=== PATIENT | male | born 1985 | race Caucasian/White ===

== ENCOUNTER 2017-07-02 14:10 | Emergency (ER) | payer SELFPAY ==
--- NOTE | 2017-07-02 14:33 | PDOC ---
Rapid Medical Evaluation Time Seen by Provider: 07/02/17 14:32 Medical Evaluation: 07/02/17 14:32 I have performed a brief in-person evaluation of this patient. The patient presents with a chief complaint of:Malaise w/ dizziness and subjective fever. S/p multiple tooth extractions last week, completed abx. Seen by dentist today and told extraction sites healing well and sent to ER for further eval Pertinent physical exam findings: Fever of 102 w/ HR of 165! I have ordered the following: nothing as no PLANNER/SCHEDULER/tech at triage The patient will proceed to the ED for further evaluation. 07/02/17 14:37 Discharge Disposition - Discharge Dispostion Last Admission D/C Date: 03/21/11 - Referrals - Patient Instructions - Post Discharge Activity
[2017-07-02 14:41] VITALS: BMI 23.7
[2017-07-02] MEDS ORDERED: SODIUM CHLORIDE 0.9% 1000 ML INFUS.BAG IV STA (15:06)
--- NOTE | 2017-07-02 15:08 | PDOC ---
Attending Attestation - HPI HPI: 07/02/17 15:31 The patient is a 31 year old male, with no significant past medical history, who presents to the emergency department with right buccal pain, fever, night sweats, and weakness for approximately 2 days. Patient reports recent wisdom tooth extraction 1 week ago, for which he has been taking Clindamycin, but has since stopped. Patient endorses presyncopal episode yesterday, where he fell due to dizziness. He denies any head trauma, LOC, or changes in vision. Patient endorses diaphoresis, but denies any chest pain, palpitations or shortness of breath. Patient reports calling his oral surgeon today, and was recommended to come to the ER for further evaluation. Patient denies any sinus tenderness, chills, cough, headache, or dizziness. He denies any abdominal pain , nausea, vomiting, diarrhea, or constipation. He denies any dysuria, hematuria , frequency, or urgency. He denies any recent travel or sick contacts. Allergies: Erythromycin base Past Surgical History: Recent wisdom tooth extraction Social History: Non smoker. No ETOH or recreational drug use. Oral Surgeon: Dr. Rob Cortes ([phone]) - Medical Decision Making 07/02/17 15:32 Documentation prepared by Piero Faust, acting as director global medical affairs for Dulce Ramos MD. <Piero Faust - Last Filed: 07/02/17 15:30> - Resident Resident Name: Ernie Jacobs - ED Attending Attestation I have performed the following: I have examined & evaluated the patient, The case was reviewed & discussed with the resident, I agree w/resident's findings & plan, Exceptions are as noted - Physicial Exam PE: GENERAL: Awake, alert, and fully oriented. Appears ill. HEAD: No signs of trauma EYES: PERRLA, EOMI, sclera anicteric, conjunctiva clear ENT: Auricles normal inspection, hearing grossly normal, nares patent, oropharynx clear without exudates. Moist mucosa NECK: Normal ROM, supple, no lymphadenopathy, JVD, or masses LUNGS: Breath sounds equal, clear to auscultation bilaterally. No wheezes, and no crackles HEART: Tachycardic, normal S1 and S2, no murmurs, rubs or gallops ABDOMEN: Soft, nontender, normoactive bowel sounds. No guarding, no rebound. No masses EXTREMITIES: Normal range of motion, no edema. No clubbing or cyanosis. No cords, erythema, or tenderness NEUROLOGICAL: Cranial nerves II through XII grossly intact. Normal speech, normal gait. Motor and sensation intact. SKIN: Cool, normal turgor, no rashes or lesions noted. +Pallor. - Medical Decision Making Pt presents with fever s/p recent wisdom teeth extraction. He appears ill, found to have fever and tachycardia. Sepsis protocol initiated. Found to have extreme leukocytosis, primarily blasts as per lab. D/w Dr. Palacio, will transfer out. <Dulce Ramos - Last Filed: 07/02/17 17:26>
[2017-07-02] MEDS ORDERED: SODIUM CHLORIDE 1,000 ML IV STA ×2 (15:09→15:10)
[2017-07-02] MEDS ORDERED: CLINDAMYCIN 600MG PREMIX IVPB 600 MG/50 ML BAG IVPB ONE ×2 (15:29→15:41)
[2017-07-02] MEDS ORDERED: ACETAMINOPHEN 1000 MG/100 ML VIAL (NON FORMULARY) IVPB ONE (15:35)
[2017-07-02] MEDS ORDERED: ACETAMINOPHEN INJECTION 100 ML IVPB ONE (15:41)
[2017-07-02 15:44] LABS: HEMATOCRIT 15.1 % (35.4-49); MCH 31.6 pg (25.7-33.7); MCHC 32.1 g/dl (32.0-35.9); MEAN CELL VOLUME 98.5 fl (80-96); MEAN PLT VOLUME 7.3 fl (7.5-11.1); RBC 1.54 M/mm3 (4.00-5.60); RDW 23.1 % (11.9-15.9)
[2017-07-02 16:10] LABS: ALBUMIN 2.8 g/dl (3.4-5.0); ANION GAP 10 (8-16); BILIRUBIN,TOTAL 0.4 mg/dL (0.2-1.0); BLOOD UREA NITROGEN 13 mg/dL (7-18); CALCIUM 7.8 mg/dL (8.5-10.1); CHLORIDE 100 mmol/L (98-107); CO2 23 mmol/L (21-32); CREATININE 0.8 mg/dL (0.7-1.3); GLUCOSE,RANDOM 109 mg/dL (74-106); POTASSIUM 3.7 mmol/L (3.5-5.1); SGOT/AST 27 U/L (15-37); SGPT/ALT 14 U/L (12-78); SODIUM 133 mmol/L (136-145); TOT PROT 7.1 g/dl (6.4-8.2)
[2017-07-02 16:13] LABS: ALK PHOS 68 U/L (45-117)
[2017-07-02 16:21] LABS: HEMOGLOBIN 4.9 GM/dL (11.7-16.9); PLATELET COUNT 62 K/MM3 (134-434); WHITE BLOOD COUNT 124.4 K/mm3 (4.0-10.0)
[2017-07-02 16:33] LABS: INR 1.42 (0.82-1.09); PROTHROMBIN TIME (PATIENT) 16.1 SEC (9.98-11.88)
[2017-07-02 16:36] LABS: ACTIVATED PTT 20.2 SECONDS (26.9-34.4)
--- NOTE | 2017-07-02 16:47 | PDOC ---
History of Present Illness - History of Present Illness Initial Comments: 07/02/17 16:40 The patient is a 31 year old male with no significant PMH who presents for evaluation of generalized weakness, fevers, and "fast heart rate." The patient reports that he had a recent wisdom tooth extraction 1 week ago and since then has been having night sweats, fevers, and generalized weakness. He was taking PO clindamycin after his surgery and has finished his course of clindamycin. He presented to his oral surgeon's office today who sent him to the ER for further evaluation given his symptoms. The patient denies any chills, chest pain, SOB, nausea, vomiting, abdominal pain, or changes with urination or bowel movements. <Ernie Jacobs - Last Filed: 07/02/17 18:38> <Dulce Ramos - Last Filed: 07/03/17 10:46> - General Chief Complaint: Toothache Stated Complaint: POST SURGICAL FEVER Time Seen by Provider: 07/02/17 14:32 Past History - Past Medical History COPD: No DVT: No - Immunization History Immunization Up to Date: Yes - Suicide/Smoking/Psychosocial Hx Smoking History: Never smoked Have you smoked in the past 12 months: No Information on smoking cessation initiated: No Hx Alcohol Use: No Drug/Substance Use Hx: No Substance Use Type: None <Ernie Jacobs - Last Filed: 07/02/17 18:38> <Dulce Ramos - Last Filed: 07/03/17 10:46> - Past Medical History Allergies/Adverse Reactions: Allergies Allergy/AdvReac Type Severity Reaction Status Date / Time erythromycin base Allergy Verified 07/02/17 14:36 Review of Systems - Review of Systems Comments:: 07/02/17 16:48 Constitutional: Fevers, night sweats, Fatigue. No chills, HEENT: No Rhinorrhea, nasal congestion, visual changes Cardiovascular: Fast heart rate. No chest pain, syncope, lightheadedness Respiratory: No Cough, SOB, Hemoptysis, Gastrointestinal: No Abdominal pain, Nausea, Vomiting, Constipation, Diarrhea, Melena Genitourinary: No Dysuria, Frequency, Urgency, Hesitancy, Hematuria, Flank pain Musculoskeletal: No Myalgia, arthralgia Skin: Pallor. No rashes, itching, bruising, Neurologic: No Headache, Dizziness, Numbness, Weakness, or Tingling Psychiatric: No Hallucinations. No SI or HI <Ernie Jacobs - Last Filed: 07/02/17 18:38> *Physical Exam - Vital Signs Last Vital Signs Temp Pulse Resp BP Pulse Ox 102.0 F H 165 H 16 116/51 100 07/02/17 14:36 07/02/17 14:36 07/02/17 14:36 07/02/17 14:36 07/02/17 14:36 - Physical Exam Comments: 07/02/17 16:50 General Appearance: Nourished. Diaphoretic appearing HEENT: EOMI, [place]. Mild swelling to the right jawline with some tenderness to palpation. No Pharyngeal Erythema, Tonsillar Exudate, Tonsillar Erythema Neck: No Cervical Lymphadenopathy Respiratory/Chest: Lungs Clear, Normal Breath Sounds. No Crackles, Rales, Rhonchi, Wheezing Cardiovascular: Regular Rhythm, Tachycardic Rate. No Murmur, Gallops, Rubs Gastrointestinal/Abdominal: Normal Bowel Sounds, Soft. No Guarding, Rebound, Tenderness Musculoskeletal: No CVA Tenderness Extremity: 3 sec Capillary Refill Integumentary: Pallor noted on exam. Normal Dry, Warm Neurologic: Fully Oriented, Alert, Normal Mood/Affect, Normal Response, <Ernie Jacobs - Last Filed: 07/02/17 18:38> - Vital Signs Last Vital Signs Temp Pulse Resp BP Pulse Ox 99.7 F H 140 H 18 131/76 100 07/02/17 20:39 07/02/17 20:39 07/02/17 20:39 07/02/17 20:39 07/02/17 20:38 <Dulce Ramos - Last Filed: 07/03/17 10:46> Heart Score/ECG Review #1 ECG reviewed & interpreted by me at: 16:53 (Sinus Tachycardic) General ECG Interpretation: Sinus Rhythm, Normal Intervals, No acute ischemic changes <Ernie Jacobs - Last Filed: 07/02/17 18:38> ED Treatment Course - LABORATORY CBC & Chemistry Diagram: 07/02/17 15:19 07/02/17 15:19 - ADDITIONAL ORDERS Additional order review: Laboratory Results 07/02/17 07/02/17 07/02/17 15:19 15:19 15:19 PT with INR 16.10 H INR 1.42 H PTT (Actin FS) 20.2 L Sodium 133 L Potassium 3.7 Chloride 100 Carbon Dioxide 23 Anion Gap 10 BUN 13 Creatinine 0.8 Creat Clearance w eGFR > 60 Random Glucose 109 H Lactic Acid 0.8 Calcium 7.8 L Total Bilirubin 0.4 AST 27 ALT 14 Alkaline Phosphatase 68 Creatine Kinase 24 L Troponin I < 0.02 Total Protein 7.1 Albumin 2.8 L 07/02/17 15:19 RBC 1.54 L MCV 98.5 H MCHC 32.1 RDW 23.1 H MPV 7.3 L Neutrophils % No Result Required. Lymphocytes % No Result Required. - RADIOLOGY Radiology Studies Ordered: Category Date Time Status CHEST X-RAY PORTABLE* [RAD] Stat Radiology 07/02/17 15:06 Completed - Medications Given in the ED: ED Medications Discontinued Medications Generic Name Dose Route Start Last Admin Trade Name Freq PRN Reason Stop Dose Admin Acetaminophen 1,000 mg 07/02/17 15:35 07/02/17 15:43 Ofirmev Injection - IVPB 07/02/17 15:36 1,000 mg ONCE ONE Administration Sodium Chloride 1,000 mls @ 1,000 mls/hr 07/02/17 15:09 07/02/17 15:39 Normal Saline - IV 07/02/17 16:08 1,000 mls/hr ASDIR STA Administration Ernie Morillo - Last Filed: 07/02/17 18:38> - LABORATORY CBC & Chemistry Diagram: 07/02/17 15:19 07/02/17 15:19 - ADDITIONAL ORDERS Additional order review: 07/02/17 15:19 RBC 1.54 L MCV 98.5 H MCHC 32.1 RDW 23.1 H MPV 7.3 L Neutrophils % No Result Required. Lymphocytes % No Result Required. - Medications Given in the ED: ED Medications Discontinued Medications Generic Name Dose Route Start Last Admin Trade Name Freq PRN Reason Stop Dose Admin Acetaminophen 1,000 mg 07/02/17 15:35 07/02/17 15:43 Ofirmev Injection - IVPB 07/02/17 15:36 1,000 mg ONCE ONE Administration Allopurinol 300 mg 07/02/17 17:30 07/02/17 17:54 Zyloprim - PO 07/02/17 17:31 300 mg ONCE ONE Administration Sodium Chloride 1,000 mls @ 1,000 mls/hr 07/02/17 15:09 07/02/17 15:39 Normal Saline - IV 07/02/17 16:08 1,000 mls/hr ASDIR STA Administration Sodium Chloride 1,000 mls @ 1,000 mls/hr 07/02/17 15:10 07/02/17 16:44 Normal Saline - IV 07/02/17 16:09 1,000 mls/hr ASDIR STA Administration Clindamycin Phosphate 600 mg in 50 mls @ 100 mls/hr 07/02/17 15:29 07/02/17 16:44 Cleocin 600 Mg Premix Ivpb - IVPB 07/02/17 15:58 100 mls/hr ONCE ONE Administration Vancomycin HCl 1,250 mg/ 250 mls @ 250 mls/hr 07/02/17 17:30 07/02/17 18:14 Dextrose IVPB 07/02/17 18:29 250 mls/hr ONCE ONE Administration Protocol Cefepime HCl 2 gm/ Dextrose 100 mls @ 200 mls/hr 07/02/17 17:31 07/02/17 17: 54 IVPB 07/02/17 18:00 200 mls/hr ONCE ONE Administration Protocol Sodium Chloride 1,000 mls @ 125 mls/hr 07/02/17 17:45 07/02/17 18:14 Normal Saline - IV 125 mls/hr ASDIR ANGELIA Administration Sodium Chloride 2,313 ml 07/02/17 15:06 07/02/17 16:52 Normal Saline - 30 ml/kg (2313 ml) 07/02/17 15:07 Not Given IV ONCE STA <Dulce Ramos - Last Filed: 07/03/17 10:46> Medical Decision Making - Medical Decision Making 07/02/17 16:53 The patient is a 31 year old male with no significant PMH who presents for evaluation of generalized weakness, fevers, and "fast heart rate." Differential includes but is not limited to: Sepsis, Abscess, Pneumonia, infections, metabolic derangement. Given the patient's recent surgery, fevers, and tachycardia, we are concerned for sepsis at this time. We will obtain a cbc , cmp, troponin, UA, chest plain film, lactate to further evaluate. We will treat with iv fluids and iv clindamycin and iv tylenol in the meantime. We will continue to monitor and reassess. 07/02/17 16:55 CBC is remarkable for a wbc elevation to 129 with a hgb of 4.3. Received a call from the lab that noted many blastocytes on microscopy. The patient's cbc is concerning for a leukemia with a blast crisis or another malignancy. The patient will require admission for further work up and management. We will consult with hematology for further recommendations. 07/02/17 18:23 We discussed the case with Dr. Palacio with Hematology who is recommending critical transfer at this time. We discussed the case with Dr. Capone at [facility] who has accepted the patient for transfer. We will initiate critical transfer. Per Dr. Palacio's recs, we will give the patient 2 units of PRBC, vanc, cefepime, and alloperanol as well as iv fluids. We will continue to monitor and reassess. <Ernie Jacobs - Last Filed: 07/02/17 18:38> *DC/Admit/Observation/Transfer - Transfer to Acute Care Facility Receiving Facility: [facility] Accepting Physician:: Dr. Capone <Ernie Jacobs - Last Filed: 07/02/17 18:38> <Dulce Ramos - Last Filed: 07/03/17 10:46> Diagnosis at time of Disposition: Tachycardia Sepsis Qualifiers: Sepsis type: sepsis due to unspecified organism Qualified Code(s): A41.9 - Sepsis, unspecified organism Fever Qualifiers: Fever type: unspecified Qualified Code(s): R50.9 - Fever, unspecified - Discharge Dispostion Disposition: TRANSFER ACUTE CARE/OTHER HOSP Condition at time of disposition: Guarded
[2017-07-02 16:54] LABS: URINE APPEARANCE SLCLOUDY; URINE BILIRUBIN NEGATIVE (NEGATIVE); URINE BLOOD NEGATIVE (NEGATIVE); URINE COLOR YELLOW; URINE GLUCOSE (UA) NEGATIVE (NEGATIVE); URINE KETONE 1+ (NEGATIVE); URINE LEUK ESTERASE NEGATIVE (NEGATIVE); URINE NITRITE NEGATIVE (NEGATIVE)
[2017-07-02 17:00] LABS: URINE PROTEIN 1+ (NEGATIVE)
--- NOTE | 2017-07-02 17:27 | PN ---
Physical Exam: SUBJECTIVE: Patient seen and examined OBJECTIVE: Vital Signs Period Temp Pulse Resp BP Sys/Whiteside Pulse Ox Last 24 Hr 102.0 F 141-165 16-18 116-121/51-69 97-100 GENERAL: The patient is awake, alert, and fully oriented, in no acute distress. HEAD: Normal with no signs of trauma. EYES: PERRL, extraocular movements intact, sclera anicteric, conjunctiva clear. No ptosis. ENT: Ears normal, nares patent, oropharynx clear without exudates, moist mucous membranes. NECK: Trachea midline, full range of motion, supple. LUNGS: Breath sounds equal, clear to auscultation bilaterally, no wheezes, no crackles, no accessory muscle use. HEART: Regular rate and rhythm, S1, S2 without murmur, rub or gallop. ABDOMEN: Soft, nontender, nondistended, normoactive bowel sounds, no guarding, no rebound, no hepatosplenomegaly, no masses. EXTREMITIES: 2+ pulses, warm, well-perfused, no edema. NEUROLOGICAL: Cranial nerves II through XII grossly intact. Normal speech, gait not observed. PSYCH: Normal mood, normal affect. SKIN: Warm, dry, normal turgor, no rashes or lesions noted Laboratory Results - last 24 hr 07/02/17 07/02/17 07/02/17 15:19 15:19 15:19 WBC 124.4 H* RBC 1.54 L Hgb 4.9 L* Hct 15.1 L MCV 98.5 H MCH 31.6 MCHC 32.1 RDW 23.1 H Plt Count 62 L MPV 7.3 L Neutrophils % No Result Required. Lymphocytes % No Result Required. PT with INR 16.10 H INR 1.42 H PTT (Actin FS) 20.2 L Sodium 133 L Potassium 3.7 Chloride 100 Carbon Dioxide 23 Anion Gap 10 BUN 13 Creatinine 0.8 Creat Clearance w eGFR > 60 Random Glucose 109 H Lactic Acid Calcium 7.8 L Total Bilirubin 0.4 AST 27 ALT 14 Alkaline Phosphatase 68 Creatine Kinase 24 L Troponin I < 0.02 Total Protein 7.1 Albumin 2.8 L Urine Color Urine Appearance Urine pH Ur Specific [place] Urine Protein Urine Glucose (UA) Urine Ketones Urine Blood Urine Nitrite Urine Bilirubin Urine Urobilinogen Ur Leukocyte Esterase Blood Type Antibody Screen 07/02/17 07/02/17 07/02/17 15:19 15:19 16:20 WBC RBC Hgb Hct MCV MCH MCHC RDW Plt Count MPV Neutrophils % Lymphocytes % PT with INR INR PTT (Actin FS) Sodium Potassium Chloride Carbon Dioxide Anion Gap BUN Creatinine Creat Clearance w eGFR Random Glucose Lactic Acid 0.8 Calcium Total Bilirubin AST ALT Alkaline Phosphatase Creatine Kinase Troponin I Total Protein Albumin Urine Color Yellow Urine Appearance Slcloudy Urine pH 5.0 Ur Specific [place] 1.020 Urine Protein 1+ H Urine Glucose (UA) Negative Urine Ketones 1+ H Urine Blood Negative Urine Nitrite Negative Urine Bilirubin Negative Urine Urobilinogen 2.0 Ur Leukocyte Esterase Negative Blood Type O POSITIVE Antibody Screen Negative CBC, BMP 07/02/17 15:19 07/02/17 15:19 ASSESSMENT/PLAN: # Pancytopenia # Hyponaytremia
[2017-07-02 17:30] LABS: VENOUS PC02 33.8 mmHg (38-52); VENOUS PH 7.48 (7.32-7.42); VENOUS PO2 31.2 mmHg (28-48)
[2017-07-02] MEDS ORDERED: ALLOPURINOL 300 MG TABLET (FP) PO ONE (17:30)
[2017-07-02] MEDS ORDERED: VANCOMYCIN 1,250 MG in DEXTROSE 5%-WATER - 250 ML IVPB ONE (17:30)
[2017-07-02] MEDS ORDERED: CEFEPIME 2 GM in DEXTROSE 5%-WATER - 100 ML IVPB ONE (17:31)
[2017-07-02] MEDS ORDERED: ALLOPURINOL 100 MG TABLET (FP) ONE (17:45)
[2017-07-02] MEDS ORDERED: CEFEPIME 2 GM/100 ML BAG IVPB ONE (17:45)
[2017-07-02] MEDS ORDERED: SODIUM CHLORIDE 1,000 ML IV SCH (17:45)
[2017-07-02 18:16] LABS: URIC ACID 4.5 mg/dL (2.6-7.2)
[2017-07-02 19:38] VITALS: TEMP 99.7
[2017-07-02 20:39] VITALS: BP 131/76; PULSE 140
--- NOTE | 2017-07-02 20:49 | PDOC ---
*Physical Exam - Vital Signs Last Vital Signs Temp Pulse Resp BP Pulse Ox 99.7 F H 140 H 18 131/76 100 07/02/17 20:39 07/02/17 20:39 07/02/17 20:39 07/02/17 20:39 07/02/17 20:38 ED Treatment Course - LABORATORY CBC & Chemistry Diagram: 07/02/17 15:19 07/02/17 15:19 - ADDITIONAL ORDERS Additional order review: Laboratory Results 07/02/17 07/02/17 07/02/17 17:30 17:30 17:30 PT with INR INR PTT (Actin FS) Fibrinogen 351.0 VBG pH POC VBG pCO2 POC VBG pO2 Mixed VBG HCO3 Sodium Potassium Chloride Carbon Dioxide Anion Gap BUN Creatinine Creat Clearance w eGFR Random Glucose Lactic Acid Uric Acid 4.5 Calcium Total Bilirubin AST ALT Alkaline Phosphatase LD Total 840 H Creatine Kinase Troponin I Total Protein Albumin Urine Color Urine Appearance Urine pH Ur Specific [place] Urine Protein Urine Glucose (UA) Urine Ketones Urine Blood Urine Nitrite Urine Bilirubin Urine Urobilinogen Ur Leukocyte Esterase Blood Type O POSITIVE Antibody Screen Cancelled Crossmatch See Detail 07/02/17 07/02/17 07/02/17 17:30 16:20 15:19 PT with INR INR PTT (Actin FS) Fibrinogen VBG pH POC VBG pCO2 POC VBG pO2 Mixed VBG HCO3 Sodium Potassium Chloride Carbon Dioxide Anion Gap BUN Creatinine Creat Clearance w eGFR Random Glucose Lactic Acid 0.5 Uric Acid Calcium Total Bilirubin AST ALT Alkaline Phosphatase LD Total Creatine Kinase Troponin I Total Protein Albumin Urine Color Yellow Urine Appearance Slcloudy Urine pH 5.0 Ur Specific [place] 1.020 Urine Protein 1+ H Urine Glucose (UA) Negative Urine Ketones 1+ H Urine Blood Negative Urine Nitrite Negative Urine Bilirubin Negative Urine Urobilinogen 2.0 Ur Leukocyte Esterase Negative Blood Type O POSITIVE Antibody Screen Negative Crossmatch 07/02/17 07/02/17 07/02/17 15:19 15:19 15:19 PT with INR INR PTT (Actin FS) Fibrinogen VBG pH 7.48 H POC VBG pCO2 33.8 L POC VBG pO2 31.2 Mixed VBG HCO3 24.7 Sodium 133 L Potassium 3.7 Chloride 100 Carbon Dioxide 23 Anion Gap 10 BUN 13 Creatinine 0.8 Creat Clearance w eGFR > 60 Random Glucose 109 H Lactic Acid 0.8 Uric Acid Calcium 7.8 L Total Bilirubin 0.4 AST 27 ALT 14 Alkaline Phosphatase 68 LD Total Creatine Kinase 24 L Troponin I < 0.02 Total Protein 7.1 Albumin 2.8 L Urine Color Urine Appearance Urine pH Ur Specific [place] Urine Protein Urine Glucose (UA) Urine Ketones Urine Blood Urine Nitrite Urine Bilirubin Urine Urobilinogen Ur Leukocyte Esterase Blood Type Antibody Screen Crossmatch 07/02/17 15:19 PT with INR 16.10 H INR 1.42 H PTT (Actin FS) 20.2 L Fibrinogen VBG pH POC VBG pCO2 POC VBG pO2 Mixed VBG HCO3 Sodium Potassium Chloride Carbon Dioxide Anion Gap BUN Creatinine Creat Clearance w eGFR Random Glucose Lactic Acid Uric Acid Calcium Total Bilirubin AST ALT Alkaline Phosphatase LD Total Creatine Kinase Troponin I Total Protein Albumin Urine Color Urine Appearance Urine pH Ur Specific [place] Urine Protein Urine Glucose (UA) Urine Ketones Urine Blood Urine Nitrite Urine Bilirubin Urine Urobilinogen Ur Leukocyte Esterase Blood Type Antibody Screen Crossmatch 07/02/17 15:19 RBC 1.54 L MCV 98.5 H MCHC 32.1 RDW 23.1 H MPV 7.3 L Neutrophils % No Result Required. Lymphocytes % No Result Required. - Medications Given in the ED: ED Medications Discontinued Medications Generic Name Dose Route Start Last Admin Trade Name Freq PRN Reason Stop Dose Admin Acetaminophen 1,000 mg 07/02/17 15:35 07/02/17 15:43 Ofirmev Injection - IVPB 07/02/17 15:36 1,000 mg ONCE ONE Administration Allopurinol 300 mg 07/02/17 17:30 07/02/17 17:54 Zyloprim - PO 07/02/17 17:31 300 mg ONCE ONE Administration Sodium Chloride 1,000 mls @ 1,000 mls/hr 07/02/17 15:09 07/02/17 15:39 Normal Saline - IV 07/02/17 16:08 1,000 mls/hr ASDIR STA Administration Sodium Chloride 1,000 mls @ 1,000 mls/hr 07/02/17 15:10 07/02/17 16:44 Normal Saline - IV 07/02/17 16:09 1,000 mls/hr ASDIR STA Administration Clindamycin Phosphate 600 mg in 50 mls @ 100 mls/hr 07/02/17 15:29 07/02/17 16:44 Cleocin 600 Mg Premix Ivpb - IVPB 07/02/17 15:58 100 mls/hr ONCE ONE Administration Vancomycin HCl 1,250 mg/ 250 mls @ 250 mls/hr 07/02/17 17:30 07/02/17 18:14 Dextrose IVPB 07/02/17 18:29 250 mls/hr ONCE ONE Administration Protocol Cefepime HCl 2 gm/ Dextrose 100 mls @ 200 mls/hr 07/02/17 17:31 07/02/17 17: 54 IVPB 07/02/17 18:00 200 mls/hr ONCE ONE Administration Protocol Sodium Chloride 2,313 ml 07/02/17 15:06 07/02/17 16:52 Normal Saline - 30 ml/kg (2313 ml) 07/02/17 15:07 Not Given IV ONCE STA Medical Decision Making - Medical Decision Making 07/02/17 20:[address] Jacobs. Pt transport has been complete, has left ER. *DC/Admit/Observation/Transfer Diagnosis at time of Disposition: Tachycardia Sepsis Qualifiers: Sepsis type: sepsis due to unspecified organism Qualified Code(s): A41.9 - Sepsis, unspecified organism Fever Qualifiers: Fever type: unspecified Qualified Code(s): R50.9 - Fever, unspecified - Discharge Dispostion Disposition: TRANSFER ACUTE CARE/OTHER HOSP Condition at time of disposition: Guarded - Referrals - Patient Instructions - Post Discharge Activity
[2017-07-02 21:11] LABS: EPI CELLS RARE /HPF (FEW)
[2017-07-02 21:12] LABS: URINE MUCUS MANY
--- NOTE | 2017-07-02 23:39 | CONSULT ---
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 He is tachycardic PMH none PSH none Last Vital Signs Temp Pulse Resp BP Pulse Ox 99.7 F H 140 H 18 131/76 100 07/02/17 20:39 07/02/17 20:39 07/02/17 20:39 07/02/17 20:39 07/02/17 20:38 Cor: RSR, No murmurs, No gallops Lungs: Clear to P&A Abd: Soft, Normal bowel sounds, No organomegaly Ext:No significant edema Abnormal Lab Results 07/02/17 07/02/17 07/02/17 15:19 15:19 15:19 WBC 124.4 H* RBC 1.54 L Hgb 4.9 L* Hct 15.1 L MCV 98.5 H RDW 23.1 H Plt Count 62 L MPV 7.3 L PT with INR 16.10 H INR 1.42 H PTT (Actin FS) 20.2 L VBG pH 7.48 H POC VBG pCO2 33.8 L Sodium Random Glucose Calcium LD Total Creatine Kinase Albumin Urine Protein Urine Ketones Crossmatch 07/02/17 07/02/17 07/02/17 15:19 16:20 17:30 WBC RBC Hgb Hct MCV RDW Plt Count MPV PT with INR INR PTT (Actin FS) VBG pH POC VBG pCO2 Sodium 133 L Random Glucose 109 H Calcium 7.8 L LD Total Creatine Kinase 24 L Albumin 2.8 L Urine Protein 1+ H Urine Ketones 1+ H Crossmatch See Detail 07/02/17 17:30 WBC RBC Hgb Hct MCV RDW Plt Count MPV PT with INR INR PTT (Actin FS) VBG pH POC VBG pCO2 Sodium Random Glucose Calcium LD Total 840 H Creatine Kinase Albumin Urine Protein Urine Ketones Crossmatch A/P 31 y/o presnting 10 days s/p wisdom tooth extraction with fevers, night sweats, mouth pain, faigue. 2 episodes of near syncope/dizziness without head trauma this am. 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 Nahid Stinson at [facility] who has accepted him for transfer
--- NOTE | 2017-07-03 11:43 | EKG ---
Test Reason : Blood Pressure : / mmHG Vent. Rate : 141 BPM Atrial Rate : 141 BPM P-R Int : 130 ms QRS Dur : 066 ms QT Int : 294 ms P-R-T Axes : 049 065 022 degrees QTc Int : 450 ms SINUS TACHYCARDIA OTHERWISE NORMAL ECG NO PREVIOUS ECGS AVAILABLE Confirmed by MD AMADOU, VALENTIN ([id number]) on 07/03/2017 11:42:44 AM Referred By: Confirmed By:VALENTIN TOBAR MD
[2017-07-05 08:41] LABS: SMUDGE CELLS MODERATE
[2017-07-05 08:42] LABS: PLATELET ESTIMATE DECREASED
== END 2017-07-02 20:50 | disposition short-term general hospital (02) ==
LOC: JER 14:10
PROC: 3E03329 Introduction of Other Anti-infective into Peripheral Vein, Percutaneous Approach (ICD-10-PCS; principal; 2017-07-02)
PROC: 3E0337Z Introduction of Electrolytic and Water Balance Substance into Peripheral Vein, Percutaneous Approach (ICD-10-PCS; 2017-07-02)
DX: T81.89XA Other complications of procedures, not elsewhere classified, initial encounter (principal); Y83.9 Surgical procedure, unspecified as the cause of abnormal reaction of the patient, or of later complication, without mention of misadventure at the time of the procedure; Z98.818 Other dental procedure status; R61 Generalized hyperhidrosis; A41.9 Sepsis, unspecified organism; R50.9 Fever, unspecified; R00.0 Tachycardia, unspecified
CPT/HCPCS: 36415; 36430; 71045-TC-FY; 80053; 81003; 81015; 82550; 82803; 83605; 83615; 84484; 84550; 85025; 85384; 85610; 85730; 86850; 86900; 86901; 86922; 87040; 87086; 93005; 93010; 99285-25; P9038; P9058